=== PATIENT | female | born 1975 | race Caucasian/White ===

== ENCOUNTER 2019-09-26 22:36 | Emergency (ER) | payer OTHER, SELFPAY ==
[2019-09-26 22:37] VITALS: BP 131/73; PULSE 78; RESP 16; TEMP 36.6; O2SAT 100; BMI 21.1
--- NOTE | 2019-09-26 22:38 | ECG_ITS ---
APPROVED REPORT Exam: Resting ECG HR:77 bpm ECG Measurements Heart Rate 77 AXES VT 108 P 38 QRSd 70 QRS 64 QT 388 T 64 QTc 439 <Conclusion> Sinus rhythm with short VT Otherwise normal ECG Electronically signed by : Vito Wheeler, 09/30/2019 12:03:45
[2019-09-26 22:59] VITALS: BP 108/68; PULSE 86; O2SAT 100
[2019-09-26 23:06] VITALS: BP 109/64; PULSE 77; RESP 24; O2SAT 99
--- NOTE | 2019-09-27 00:03 | HMH.EDSYNC ---
ED Disposition Clinical Impression: Vasovagal syncope Disposition: Home, Self-Care Condition on Discharge: Good Instructions: DI for Syncope in Adults (Fainting) Additional Instructions: fluids and see pcp for follow up Referrals: Provider,Referral, [Primary Care Provider] - - Critical Care Critical Care Time: No Attestation: On 09/26/19, the high probability of a clinically significant, sudden or life threatening deterioration of the following system(s) required my full and direct attention, intervention and personal management. The time I documented below is in addition to time spent performing reported procedures but includes the following listed in this critical care notation. Medical Decision Making - Medical Records Medical records reviewed: Yes: I reviewed the patient's medical records. - Maxime Inquiry Pt receiving controlled substance: No Vital Signs: 09/26/19 22:37 09/26/19 22:59 09/26/19 23:06 Temperature 98 F Temperature Source Oral Pulse Rate [Right Radial] 78 86 77 Respiratory Rate 16 24 Blood Pressure [Right Arm] 131/73 108/68 L 109/64 L Blood Pressure Mean [Right Arm] 92 81 79 Blood Pressure Source [Right Arm] Automatic Cuff Automatic Cuff Automatic Cuff Blood Pressure Position [Right Arm] Supine Sitting Supine 02 Sat by Pulse Oximetry 100 100 99 Oxygen Delivery Method Room Air Room Air Room Air 09/27/19 00:31 Temperature Temperature Source Pulse Rate [Right Radial] 77 Respiratory Rate 22 Blood Pressure [Right Arm] 116/78 Blood Pressure Mean [Right Arm] 90 Blood Pressure Source [Right Arm] Blood Pressure Position [Right Arm] 02 Sat by Pulse Oximetry 99 Oxygen Delivery Method Room Air - Lab Data Lab results reviewed: Yes: I reviewed the patient's lab results. Lab Results 09/26/19 22:45: WBC 12.4 H, RBC 4.72, Hgb 14.6, Hct 43.9, MCV 93.1, MCH 31.0, MCHC 33.3, RDW 13.8, Plt Count 286, MPV 8.5, Neut % (Auto) 52.1, Lymph % (Auto) 39.3, [place] % (Auto) 5.8, Eos % (Auto) 2.1, Baso % (Auto) 0.8, Neut # (Auto) 6.5, Lymph # (Auto) 4.9 H, [place] # (Auto) 0.7, Eos # (Auto) 0.3, Baso # (Auto) 0.1 09/26/19 22:45: Sodium 136, Potassium 3.7, Chloride 100, Carbon Dioxide 28, Anion Gap 11.7, BUN 13, Creatinine 0.80, Estimated Creat Clear 89, Estimated GFR 79, Est GFR ( Amer) 95, Glucose 120 H, Calcium 9.9, Total Bilirubin 0.3, AST 29, ALT 13, Alkaline Phosphatase 60, Troponin I < 0.01, C-Reactive Protein 1.3, Total Protein 7.8, Albumin 4.7, Globulin 3.1, Albumin/Globulin Ratio 1.5 Result diagrams: 09/26/19 22:45 09/26/19 22:45 Orders (Tests/Meds): ED MEDICATIONS Generic Name Dose Route Start Last Admin Trade Name Freq PRN Reason Stop Dose Admin Sodium Chloride 1,000 mls @ 999 mls/hr 09/27/19 00:15 09/27/19 00:13 Sod Chlor 0.9% 1000ml Bag IV 09/27/19 01:15 999 mls/hr .Q1H1M NINA Administration ORDERS Category Date Time Status CT head/brain wo con Stat Cat Scan 09/27/19 00:07 Ordered XR chest 2V Stat Exams 09/27/19 00:07 Ordered Erythrocyte Sedimentation Rate Stat Lab 09/27/19 00:00 Received Troponin I Q3H Lab 09/27/19 03:15 Ordered Troponin I Q3H Lab 09/27/19 06:15 Ordered - ECG Data Tracing #1 Normal Sinus Rhythm: Yes Ischemic changes: non-specific ST-T wave changes Syncope HPI - General Chief Complaint: Syncope Stated Complaint: passed out Time Seen by Provider: 09/26/19 23:40 Mode of Arrival: EMS Source of Information: Patient, EMS, Medical Record Limitations: No Limitations Description of Symptoms (Recalled from ER Triage Doc. by RN): hot, started convulsing, passed out - History of Present Illness HPI narrative: pt reports got hot and had syncopal episode with no incont - no hx of sz disorder and feels at baseline now - no chest pain or palpitations MD complaint: almost passed out Onset (ago): hour(s) Prodromal symptoms: lightheaded Witnessed: yes - by bystander Context: at rest Injuries sustained associated with
--- NOTE | 2019-09-27 00:07 | CT_ITS ---
PROCEDURE: CT HEAD/BRAIN WO CON CLINICAL INDICATION: syncope COMPARISON: No exams were available for comparison TECHNIQUE: Axial images obtained. All CT scans at the facility use one or more dose reduction, viz: automated exposure control, ma/kV adjustment per patient size (including targeted exams where dose is matched to indication, i.e. head), or iterative reconstruction technique. FINDINGS: No midline shift, mass effect, intracranial hemorrhage, hydrocephalus, or extra-axial fluid collection is evident. The calvarium has an unremarkable appearance. No mastoid effusion. No sinus air-fluid level. IMPRESSION: No acute intracranial finding Dictated by: Sloan Pereira 09/27/2019 08:28 Electronically signed by Sloan Pereira in [place] 09/27/2019 08:28
--- NOTE | 2019-09-27 00:07 | XR_ITS ---
PROCEDURE: XR CHEST 2V CLINICAL HISTORY: syncope COMPARISON: No exams were available for comparison FINDINGS: The cardiomediastinal silhouette and pulmonary vascularity are within normal limits. The lungs are clear without infiltrates, suspicious nodules, or pleural effusions. No acute bony abnormalities. IMPRESSION: No acute findings. Dictated by: Sloan Pereira 09/27/2019 08:35 Electronically signed by Sloan Pereira in [facility] 09/27/2019 08:35
--- NOTE | 2019-09-27 00:12 | PC.NURSE ---
iv infiltrated at this time. iv removed pt states site feels better. ice pack provided. states to not restart iv at this time
[2019-09-27 00:16] LABS: Basophils # 0.1 K/mm3 (0-0.2); Basophils % 0.8 % (0.1-2.0); Eosinophils # 0.3 K/mm3 (0.0-0.4); Eosinophils % 2.1 % (0.1-12.0); Hematocrit 43.9 % (37.0-47.0); Hemoglobin 14.6 g/dL (12.2-16.2); Lymphocytes # 4.9 K/mm3 (0.7-4.5); Lymphocytes % 39.3 % (10-50); Mean Corpuscular HGB Conc 33.3 g/dL (31.8-35.4); Mean Corpuscular Volume 93.1 fl (81-99); Mean Platelet Volume 8.5 fl (7.4-10.4); Monocytes # 0.7 K/mm3 (0.1-1.0); Monocytes % 5.8 % (1.7-9.3); Neutrophils # 6.5 K/mm3 (1.8-7.8); Neutrophils % 52.1 % (37.0-80.0); Platelet Count 286 K/mm3 (142-424); Red Blood Count 4.72 M/mm3 (4.20-5.40); Red Cell Distribution Width 13.8 % (11.5-17.5); White Blood Count 12.4 K/mm3 (4.8-10.8)
[2019-09-27 00:20] LABS: Alanine Aminotransferase 13 U/L (12-78); Albumin Level 4.7 g/dl (3.5-5.0); Albumin/Globulin Ratio 1.5 (1.1-1.8); Alkaline Phosphatase 60 U/L (38-126); Anion Gap 11.7 mEq/L (5-15); Aspartate Amino Transferase 29 U/L (14-36); Bilirubin,Total 0.3 mg/dl (0.2-1.3); Blood Urea Nitrogen 13 mg/dl (7-17); Calcium 9.9 mg/dl (8.4-10.2); Carbon Dioxide 28 mmol/L (22.0-30.0); Chloride 100 mmol/L (98-107); Creatinine Clearance Estimated 89 mL/min (50-200); Estimated Glomerular Filt Rate 79 ml/min (>60); GFR (African American) 95 ML/MIN (>60); Globulin 3.1 g/dL (1.3-3.2); Glucose 120 mg/dl (74-100); Potassium 3.7 mmoL/L (3.5-5.1); Sodium 136 mmol/L (136-145); Total Protein,Serum 7.8 g/dl (6.3-8.2)
[2019-09-27 00:26] LABS: C-Reactive Protein 1.3 mg/L (0-4)
[2019-09-27 00:31] VITALS: BP 116/78; PULSE 77; RESP 22; O2SAT 99
[2019-09-27 00:38] LABS: Troponin I < 0.01 ng/ml (0.00-0.034)
[2019-09-27 00:51] LABS: Erythrocyte Sedimentation Rate 11 mm/hr (0-20)
[2019-09-27 01:07] VITALS: BP 118/75; PULSE 86; RESP 16; TEMP 36.6; O2SAT 98
== END 2019-09-27 01:15 | disposition home or self-care (01) ==
PROVIDERS: Emergency Provider Emergency Medicine
DX: R55 Syncope and collapse (principal); Z88.2 Allergy status to sulfonamides
CPT/HCPCS: 70450; 71046; 80053; 84484; 85025; 85651; 86140; 93005; 96365; 99283

== ENCOUNTER 2020-03-11 17:22 | Emergency (ER) | payer OTHER, SELFPAY ==
[2020-03-11 17:42] VITALS: BP 121/72; PULSE 83; RESP 14; TEMP 37.3; O2SAT 99; BMI 20.3
--- NOTE | 2020-03-11 17:50 | HMH.EDUTC ---
[facility] Disposition Clinical Impression: Viral syndrome, Exposure to COVID-19 virus Disposition: Home, Self-Care Condition on Discharge: Good Instructions: Preventing the Spread of Coronavirus Discharge Instructions Additional Instructions: Drink plenty of fluids. Take tylenol for pain or fever. Return if you begin to have difficulty breathing. Follow up with your regular doctor. GO TO THE ER FOR ANY WORSENING SYMPTOMS Prescriptions: Azithromycin [Z-Handy 250mg Tab*] 250 mg PO UD DOSE PK #6 tab Transmission Status: Received by [facility] Referrals: Merlin Estes MD [Primary Care Provider] - Time of Disposition: 18:02 Medical Decision Making - Medical Records Medical records reviewed: No: I reviewed the patient's medical records. - Maxime Inquiry Pt receiving controlled substance: No Vital Signs: 03/11/20 17:42 03/11/20 18:18 Temperature 99.1 F 99.1 F Temperature Source Oral Oral Pulse Rate 83 Pulse Rate [Radial] 83 Respiratory Rate 14 14 Blood Pressure 121/72 Blood Pressure [Right Arm] 121/72 Blood Pressure Mean [Right Arm] 88 Blood Pressure Source Automatic Cuff Blood Pressure Source [Right Arm] Automatic Cuff Blood Pressure Position Sitting Blood Pressure Position [Right Arm] Sitting 02 Sat by Pulse Oximetry 99 Oxygen Delivery Method Room Air Room Air Orders (Tests/Meds): ORDERS Category Date Time Status Covid-19 Nasal PCR Sendout Carlos Routine Lab 03/11/20 17:40 Received [facility] HPI - General Stated complaint: covid test Time Seen by Provider: 03/11/20 17:50 Mode of Arrival: Ambulatory Source of Information: Patient Limitations: No Limitations Description of Symptoms (Recalled from Triage Doc. by RN): covid test, cough, fever, armendariz, body aches HEENT Symptoms (Recalled from RN notes): No Resp Symptoms (Recalled from RN notes): No Skin Symptoms (Recalled from RN notes): No MS Symptoms (Recalled from RN notes): No Functional Status (Recalled from RN notes): wnl - History of Present Illness Provider Complaint: She states that she has been exposed to covid-19 and she has felt bad for the past 2 days. She has been running a low grade fever and had chest congestion and sinus congestion. - Related Data Previous Rx's Medication Instructions Recorded Azithromycin [Z-Handy 250mg Tab*] 250 mg PO UD DOSE PK #6 tab 12/09/20 Allergies Allergy/AdvReac Type Severity Reaction Status Date / Time Sulfa (Sulfonamide Allergy Intermediate Verified 09/26/19 22:46 Antibiotics) [SULFA (SULFONAMIDE ANTIBIOTICS)] - Worker's Comp Is this a Worker's Comp case?: No [facility] History - Hepatitis A Screen Drug use history?: No High risk sexual behaviors?: No History of sexually transmitted infection?: No Currently employed?: No Childcare worker?: No Do you have indoor plumbing?: Yes Do you have electricity?: Yes Attestation statement:: This patient has been screened for Hepatitis A risk factors. I have reviewed the patient's past medical history: Yes - Social History Smoking Status: Current every day smoker Tobacco Type: cigarettes Alcohol Intake: never Occupational Status: other Housing: house ROS Obtained: Yes All systems reviewed & no additional complaints - Constitutional Constitutional: Reports system reviewed and no additional complaints, except as docu - Eyes Eyes: Reports system reviewed and no additional complaints, except as docu - ENT Ears, Nose, Mouth, and Throat: Reports system reviewed and no additional complaints, except as docu - Cardiovascular Cardiovascular: Reports system reviewed and no additional complaints, except as docu - Respiratory Respiratory: Yes system reviewed and no additional complaints, except as docu - Gastrointestinal Gastrointestingal: Reports: system reviewed and no additional complaints, except as docu Physical Exam - General General appearance: alert, in no apparent distress
[2020-03-11 18:18] VITALS: BP 121/72; PULSE 83; RESP 14; TEMP 37.3; O2SAT 99
[2020-03-13 12:07] LABS: Covid-19 Nasal PCR Sendout Lex Not Detected
== END 2020-03-11 18:19 | disposition home or self-care (01) ==
PROVIDERS: Emergency Provider Nurse Practitioner Family; PCP Ophthalmology
DX: Z20.828 Contact with and (suspected) exposure to other viral communicable diseases (principal); B34.9 Viral infection, unspecified; Z88.2 Allergy status to sulfonamides
CPT/HCPCS: 99201; U0004

== ENCOUNTER 2020-09-24 12:14 | Emergency (ER) | payer OTHER, SELFPAY ==
[2020-09-24 12:26] VITALS: BP 116/69; PULSE 76; RESP 16; TEMP 36.8; O2SAT 98; BMI 21.1
--- NOTE | 2020-09-24 12:30 | XR_ITS ---
PROCEDURE: XR FOOT RT MIN 3V CLINICAL INDICATION: pain COMPARISON: CR FTR3 FOOT-RT-3 VIEWS from 08/29/2015 FINDINGS: There is an avulsion fracture present involving the anterior aspect of the navicular. The fracture fragment measures approximately 4 mm and is displaced proximally by approximately 3 mm. Lucency is present at the distal and medial aspect of the 1st metatarsal and may be related to subchondral cyst having a somewhat similar appearance on previous exam. Other findings:None. IMPRESSION: Mildly displaced avulsion fracture of the anterior aspect of the navicular Dictated by: Juan Philip MD 09/24/2020 13:21 Juan Philip MD in [facility] 09/24/2020 13:21
--- NOTE | 2020-09-24 12:30 | XR_ITS ---
PROCEDURE: XR ANKLE RT MIN 3V CLINICAL INDICATION: pain Injury with pain COMPARISON: No exams were available for comparison FINDINGS: No fracture or dislocation. No lytic or blastic change. There is normal mineralization. The joint spaces are well-preserved. No significant degenerative/arthritic changes. No erosive changes evident. Other findings:None. IMPRESSION: No acute findings. Dictated by: Juan Philip MD 09/24/2020 13:22 Juan Philip MD in [facility] 09/24/2020 13:22
--- NOTE | 2020-09-24 13:43 | HMH.EDUTC ---
[facility] [place] Clinical Impression: Foot fracture, right Qualifiers: Encounter type: initial encounter Fracture type: closed Qualified Code(s): S92.901A - Unspecified fracture of right foot, initial encounter for closed fracture Disposition: Home, Self-Care Condition on Discharge: Good Instructions: How to Use Crutches, Foot Fracture, DI for Foot Fracture Additional Instructions: Rest the extremity, apply ice for 15 minutes as tolerated three or four times per day, Elevate the extremity as tolerated while you are resting. Take ibuprofen for pain. I sent in a prescription to your pharmacy. Follow up with Dr. Aguilar (orthopedics). I put in a referral but you need to call her office and schedule an appointment. Follow up with your regular doctor. GO TO THE ER FOR ANY WORSENING SYMPTOMS Prescriptions: Ibuprofen [Ibuprofen 600mg Tablet] 600 mg PO Q6HP PRN #30 tab PRN Reason: Mild Pain Transmission Status: Received by [facility] Referrals: Provider,Referral, [Primary Care Provider] - Time of Disposition: 13:44 Medical Decision Making - Medical Records Medical records reviewed: No: I reviewed the patient's medical records. - Maxime Inquiry Pt receiving controlled substance: No Vital Signs: 09/24/20 12:26 09/24/20 13:46 Temperature 98.2 F 98 F Temperature Source Oral Pulse Rate 70 Pulse Rate [Right] 76 Respiratory Rate 16 18 Blood Pressure 119/75 Blood Pressure [Right Arm] 116/69 Blood Pressure Mean [Right Arm] 84 02 Sat by Pulse Oximetry 98 - Radiology Data #1 Image(s): Foot/Toes Image Reviewed: Yes I reviewed the patient's radiology image, Yes I have reviewed radiologist's interpretation Preliminary Findings: Abnormal PROCEDURE: XR FOOT RT MIN 3V CLINICAL INDICATION: pain COMPARISON: CR FTR3 FOOT-RT-3 VIEWS from 08/29/2015 FINDINGS: There is an avulsion fracture present involving the anterior aspect of the navicular. The fracture fragment measures approximately 4 mm and is displaced proximally by approximately 3 mm. Lucency is present at the distal and medial aspect of the 1st metatarsal and may be related to subchondral cyst having a somewhat similar appearance on previous exam. Other findings:None. IMPRESSION: Mildly displaced avulsion fracture of the anterior aspect of the navicular Dictated by: Juan Philip MD 09/24/2020 13:21 Juan Philip MD in [facility] 09/24/2020 13:21 #2 Image(s): Ankle Image Reviewed: Yes I reviewed the patient's radiology image, Yes I have reviewed radiologist's interpretation Preliminary Findings: Normal/NAD, No Fracture Seen PROCEDURE: XR ANKLE RT MIN 3V CLINICAL INDICATION: pain Injury with pain COMPARISON: No exams were available for comparison FINDINGS: No fracture or dislocation. No lytic or blastic change. There is normal mineralization. The joint spaces are well-preserved. No significant degenerative/arthritic changes. No erosive changes evident. Other findings:None. IMPRESSION: No acute findings. Dictated by: Juan Philip MD 09/24/2020 13:22 Juan Philip MD in [facility] 09/24/2020 13:22 [facility] [place]PI - General Stated complaint: ao 09/21/20 injury to Rt foot Time Seen by Provider: 09/24/20 12:35 Mode of Arrival: Ambulatory Source of Information: Patient Limitations: No Limitations Description of Symptoms (Recalled from Triage Doc. by RN): pt states she stepped down off pallets and hear a pop in her R foot, she is nowing having pain and burning. pts foot and ankle are both swollen. HEENT Symptoms (Recalled from RN notes): No Resp Symptoms (Recalled from RN notes): No Skin Symptoms (Recalled from RN notes): No MS Symptoms (Recalled from RN notes): Yes (R foot/ankle pain) Functional Status (Recalled from RN notes): na - History of Present Illness Provider Complaint: She states that 3 days ago she stepped down off of a pallet and came down wrong on her right foot
[2020-09-24 13:46] VITALS: BP 119/75; PULSE 70; RESP 18; TEMP 36.6
== END 2020-09-24 13:49 | disposition home or self-care (01) ==
PROVIDERS: Emergency Provider Nurse Practitioner Family
DX: S92.251A Displaced fracture of navicular [scaphoid] of right foot, initial encounter for closed fracture (principal); X50.1XXA Overexertion from prolonged static or awkward postures, initial encounter; Y92.89 Other specified places as the place of occurrence of the external cause; F17.210 Nicotine dependence, cigarettes, uncomplicated; Z88.2 Allergy status to sulfonamides
CPT/HCPCS: 29515; 73610; 73630; 99202; G0463